=== PATIENT | male | born 1945 | race American Indian/Alaskan Native ===

== ENCOUNTER 2020-05-16 06:12 | Day surgery (SDC) | payer MEDICARE ==
[~2020-05-16 06:12] MED LIST: GLYCOPYRROLATE 0.4 MG/2 ML INJ ONE; ONDANSETRON 4 MG/2 ML INJ ONE; ePHEDrine SULFATE 50 MG/1 ML INJ ONE
[2020-05-16] MEDS ORDERED: SODIUM CHLORIDE 0.9% 1000 ML 1,000 ML IV SCH (06:45)
[2020-05-16] MEDS ORDERED: DEXMEDETOMIDINE 200 MCG/2 ML VIAL IV ONE ×2 (07:24→09:00)
[2020-05-16 07:39] LABS: BUN/Creatinine Ratio 16; Blood Urea Nitrogen 13 mg/dL (9-20); Calcium 9.1 mg/dL (8.4-10.2); Hemolysis Index 8
[2020-05-16 07:46] LABS: INR 1.18 (0.87-1.13); Partial Thromboplastin Time 25.7 Sec. (24.2-36.6)
[2020-05-16 07:47] LABS: Hemoglobin 12.9 gm/dl (11.8-15.2); Mean Corpuscular HGB Conc 34 % (32-34); Mean Corpuscular Volume 94 fl (84-94); Platelet Count 176 K/mm3 (140-440); Red Blood Count 4.05 M/mm3 (3.65-5.03); Red Cell Distribution Width 13.5 % (13.2-15.2)
[2020-05-16] MEDS ORDERED: HEPARIN/NS 5000 UNIT/500ML 1,000 ML IR ONE (07:49)
[2020-05-16] MEDS ORDERED: LIDOCAINE 1%/EPINEPHRINE 1:100,000 VIAL (20 ML) INFILTRATI ONE (07:51)
[2020-05-16] MEDS ORDERED: HEPARIN/NS 5000 UNIT/500ML 500 ML IR ONE (07:51)
[2020-05-16] MEDS ORDERED: ceFAZolin/Water 2 GM/20 ML 0 GM/0 ML SYRINGE IV ONE (07:52)
[2020-05-16] MEDS ORDERED: MIDAZOLAM 2 MG/2 ML INJ ONE (07:54)
[2020-05-16] MEDS ORDERED: fentaNYL 100 MCG/2 ML INJ ONE (07:55)
--- NOTE | 2020-05-16 08:17 | Anesthesia Day of Surgery ---
Anesthesia Day of Surgery - Day of Surgery Patient Examined: Yes Patient H&P Reviewed: Yes Patient is NPO: Yes Beta Blockers: Yes (atenolol today AM)
--- NOTE | 2020-05-16 08:17 | Anesthesia Consultation ---
Anesthesia Consult and Med Hx Date of service: 05/16/20 - Airway Anesthetic Teeth Evaluation: Poor, Partials (upper and lower) ROM Head & Neck: Adequate Mental/Hyoid Distance: Adequate Mallampati Class: Class II Intubation Access Assessment: Probably Good - Pulmonary Exam CTA: Yes - Cardiac Exam Cardiac Exam: RRR (bradycardic) - Pre-Operative Health Status ASA Pre-Surgery Classification: ASA3 Proposed Anesthetic Plan: MAC - Pulmonary Hx Smoking: Yes (former smoker quit 30 yrs) Hx Respiratory Symptoms: No - Cardiovascular System Hx Hypertension: Yes (took losartan, HCTZ, and atenolol this morning) Hx Heart Attack/AMI: No Hx Percutaneous Transluminal Coronary Angioplasty (PTCA): No Hx Cardia Arrhythmia: No Hx Peripheral Vascular Disease: Yes (w/ claudication and rest pain) - Central Nervous System CVA: No Hx Back Pain: Yes - Gastrointestinal Hx Gastroesophageal Reflux Disease: No - Endocrine Hx Renal Disease: No Hx Liver Disease: No Hx Insulin Dependent Diabetes: Yes (took usual dose lantus last night) Hx Thyroid Disease: No - Hematic Hx Anemia: No - Other Systems Hx Cancer: Yes (hx multiple myeloma) Hx Obesity: No - Additional Comments Anesthesia Medical History Comments: No prior anesthetics.
--- NOTE | 2020-05-16 08:17 | History and Physical Report ---
History of Present Illness Date of examination: 05/16/20 History of present illness: HPI: 74yo male with known left leg rest pain presents for attempted endovascular intervention. Patient denies any changes from last seen in clinic. Patient states rest pain to the left leg remains present and unchanged. No other com plaints ROS: as per HPI, otherwise negative PE: NAD, A&Ox3 RRR non-labored respirations palpable femoral pulses bilat unable to palpate pedal pulses Plan: Left lower extremity endovascular intervention consent obtained risks/benefits explained, patient expresses understanding and wishes to proceed Medications and Allergies Allergies Allergy/AdvReac Type Severity Reaction Status Date / Time No Known Allergies Allergy Unverified 01/07/15 06:36 Home Medications Medication Instructions Recorded Confirmed Last Taken Type Aspirin [Aspirin BABY CHEW TAB] 81 mg PO QDAY 01/07/15 05/16/20 05/16/20 05:00 History Losartan [Cozaar] 100 mg PO QDAY 01/07/15 05/16/20 05/16/20 05:00 History atenoloL [Tenormin] 25 mg PO DAILY 01/07/15 05/16/20 05/15/20 History hydroCHLOROthiazide [HCTZ] 25 mg PO QDAY 01/07/15 05/16/20 05/16/20 05:00 History Lenalidomide [Revlimid] 15 mg PO QDAY 05/16/20 05/16/20 05/15/20 History Active Meds: Active Medications Sodium Chloride (Nacl 0.9% 1000 Ml) 1,000 mls @ 42 mls/hr IV DIRECT JACE Last Admin: 05/16/20 07:06 Dose: 42 mls/hr Documented by: Exam - Constitutional Vitals: Temp Pulse Resp BP Pulse Ox 99.4 F 55 L 20 145/95 98 05/16/20 06:40 05/16/20 06:40 05/16/20 06:40 05/16/20 06:40 05/16/20 06:40 Results - Labs CBC & Chem 7: 05/16/20 07:06 05/16/20 07:06 Labs: Abnormal lab results 05/16/20 05/16/20 05/16/20 Range/Units 07:06 07:06 07:06 WBC 4.0 L (4.5-11.0) K/mm3 PT 15.2 H (12.2-14.9) Sec. INR 1.18 H (0.87-1.13) Potassium 3.4 L (3.6-5.0) mmol/L Carbon Dioxide 31 H (22-30) mmol/L Glucose 134 H (75-100) mg/dL
[2020-05-16] MEDS: LIDOCAINE (2%) 20 MG/1 ML VIAL 20 ML MDV INFILTRATI ONE ×3 (08:19→09:00)
[2020-05-16] MEDS: HEPARIN 10,000 UNITS/10 ML VIAL ONE ×2 (08:36→09:27)
[2020-05-16] MEDS ORDERED: GLYCOPYRROLATE 0.4 MG/2 ML INJ ONE (09:00)
[2020-05-16] MEDS ORDERED: ePHEDrine SULFATE 50 MG/1 ML INJ ONE (09:00)
[2020-05-16] MEDS ORDERED: ONDANSETRON 4 MG/2 ML INJ ONE (09:00)
[2020-05-16] MEDS ORDERED: HEPARIN 10,000 UNITS/10 ML VIAL ONE (09:10)
[2020-05-16] MEDS ORDERED: VERAPAMIL 5 MG/2 ML INJ ONE (09:10)
[2020-05-16] MEDS ORDERED: NITROGLYCERIN SYRINGE 3 ML ONE (09:11)
[2020-05-16] MEDS ORDERED: PROTAMINE SULFATE 50 MG/5 ML INJ ONE (10:26)
--- NOTE | 2020-05-16 11:06 | Post Operative Note ---
Date of procedure: 05/16/20 Pre-op diagnosis: Left Lower Extremity Critical Limb Ischemia Post-op diagnosis: same Findings: Aorto-iliac system patent bilaterally, patent left common femoral and profunda femoral artery, 80% stenosis of the origin and proximal SFA with complete total occlusion of the mid SFA with reconstitution of the TP trunk, 50% stenosis of the distal TP trunk extending into the proximal PT with 1 vessel runoff via the PT to the foot. Procedure: 1. Right Femoral Artery Access under Ultrasound guidance 2. Diagnostic Aortogram with Supervision and Interpretation 3. Left Lower Extremity Angiogram with 3rd Order Catheter Placement 4. Left Posterior Tibial Artery Access under Ultrasound guidance Anesthesia: MAC, local Surgeon: NISHANT LAUGHLIN Estimated blood loss: minimal Pathology: none Condition: stable Disposition: observation
--- NOTE | 2020-05-16 11:13 | Short Stay Summary ---
Short Stay Documentation Date of service: 05/16/20 - History H&P: dictated - Allergies and Medications Current Medications: Allergies No Known Allergies Allergy (Unverified 01/07/15 06:36) Home Medications Medication Instructions Recorded Confirmed Last Taken Type Aspirin [Aspirin BABY CHEW TAB] 81 mg PO QDAY 01/07/15 05/16/20 05/16/20 05:00 History Losartan [Cozaar] 100 mg PO QDAY 01/07/15 05/16/20 05/16/20 05:00 History atenoloL [Tenormin] 25 mg PO DAILY 01/07/15 05/16/20 05/16/20 05:00 History hydroCHLOROthiazide [HCTZ] 25 mg PO QDAY 01/07/15 05/16/20 05/16/20 05:00 History Acetaminophen with Codeine 1 tab PO Q6HR 05/16/20 05/16/20 05/15/20 History [Acetaminophen-Codeine #4 TAB] Amlodipine Besylate [Norvasc] 2.5 mg PO DAILY 05/16/20 05/16/20 05/16/20 05:00 History Apixaban [Eliquis] 5 mg PO BID 05/16/20 05/16/20 05/15/20 History Insulin Glargine [Lantus VIAL] 30 units SUB-Q QHS 05/16/20 05/16/20 05/15/20 History Latanoprost 0.005% [Xalatan 0.005%] 1 drop OP QPM 05/16/20 05/16/20 05/15/20 History Lenalidomide [Revlimid] 15 mg PO QDAY 05/16/20 05/16/20 05/15/20 History Potassium Chloride [K-Dur] 20 meq PO QDAY 05/16/20 05/16/20 05/16/20 05:00 History Active Medications Sodium Chloride (Nacl 0.9% 1000 Ml) 1,000 mls @ 42 mls/hr IV DIRECT JACE Last Admin: 05/16/20 07:06 Dose: 42 mls/hr Documented by: - Physical exam General appearance: no acute distress HEENT: Atraumatic Lungs: Normal air movement Heart: Regular rate Extremities: no ischemia - Hospital course Hospital course: the patient was taken to the laborer yard and had a left lower extremity angiogram performed. please refer to the operative note concerning details of the procedure. the patient tolerated the procedure well and was discharged home in stable condition. - Disposition Condition at discharge: Stable Disposition: DC-01 TO HOME OR SELFCARE Short Stay Discharge Plan Follow up with: BLAS MARTÍNEZ JR, MD [Primary Care Provider] - 7 Days
--- NOTE | 2020-05-16 11:51 | Operative Report ---
STAFF SURGEON: Dr. Marin Masters. PREOPERATIVE DIAGNOSIS: Left lower extremity critical limb ischemia. POSTOPERATIVE DIAGNOSIS: Left lower extremity critical limb ischemia. PROCEDURE PERFORMED: 1. Right femoral artery access under ultrasound guidance. 2. Left posterior tibial artery access under ultrasound guidance. 3. Diagnostic aortogram with supervision and interpretation. 4. Left lower extremity angiogram with third order catheter placement. 5. Closure of right femoral artery access using a Mynx closure device. COMPLICATIONS: None. ESTIMATED BLOOD LOSS: Less than 10 mL. ANESTHESIA: Deep sedation. ANGIOGRAPHIC FINDINGS: The aortoiliac system was patent bilaterally. The left common femoral and profunda femoral arteries were patent. There was an 80% stenosis at the origin and proximal superficial femoral artery on the left with a complete total occlusion of the mid superficial femoral artery with reconstitution of the tibioperoneal trunk. There is a 50% stenosis of the distal tibioperoneal trunk extending into the proximal posterior tibial artery with a 1-vessel runoff via the posterior tibial artery to the foot. INDICATIONS FOR PROCEDURE: This is a 74-year-old gentleman with known significant peripheral vascular disease, who recently developed significant rest pain in the left lower extremity. The patient had diagnostic imaging, which demonstrated extensive infrainguinal disease; therefore, the patient is to be brought to the cardiac catheterization technician in attempt for intervention for revascularization. The patient was explained the risks, benefits and alternatives of procedure, expressed understanding and wished to proceed. DESCRIPTION OF PROCEDURE: After appropriate consent was obtained, the patient was brought back to the cardiac catheterization technician, placed on the table in supine position. Both groins were prepped and the left foot were prepped and draped in the usual sterile fashion with ChloraPrep. Appropriate time-out was performed indicating correct patient, procedure, and site of the procedure. I then began the intervention by obtaining percutaneous access of the right common femoral artery in a retrograde fashion using a micropuncture technique under ultrasound guidance. Once we obtained access, needle was exchanged for a micropuncture sheath using Seldinger technique. I then proceeded to place a 5-[place]izen [place] sheath over a stiff J-wire and then this was upsized to a 7-[place]izen [place] sheath. The patient was given unfractionated heparin intravenously and ACTs were obtained throughout the remainder of the case for adequate anticoagulation. We then placed a Glidewire and Omniflush catheter into the infrarenal aorta. A diagnostic aortogram was performed, which demonstrated the findings noted above. We then proceeded to cannulate the left iliac system with a combination of the Omniflush catheter and Glidewire. The Omniflush catheter was then advanced over the bifurcation into the distal external iliac artery. Then, a series of diagnostic imaging of the left lower extremity was performed, which demonstrated the findings noted above. With this, we then proceeded to place a stiff Glidewire into the SFA, and then the short 7-[place]izen [place] sheath was exchanged for a 7-[place] x 45 cm sheath. We then proceeded to obtain pedal access using a micropuncture technique under ultrasound guidance of the posterior tibial artery in a retrograde fashion. Once we obtained access, needle was exchanged for a micropuncture sheath using Seldinger technique and diagnostic imaging revealed that we were within the true lumen of the posterior tibial artery. This was then upsized to a 4/5 slender sheath. Appropriate cocktail was placed within the artery and then multiple attempts were performed to cross the lesion from both in an antegrade and retrograde fashion using multiple wires and catheters, which were ultimately unsuccessful due to the extensive nature of the lesion. After multiple attempts, it was felt this was futile and unable to cross the extensive lesion, so the wires and catheters were removed. The stiff Glidewire was replaced back into the SFA and the long 7-[place]izen [place] sheath was then exchanged for a short 7-[place] sheath. We then proceeded to remove the wire and then deployed a Mynx closure device in the right groin, which deployed adequately, and then further hemostasis was obtained with digital compression. The slender sheath was removed from below and digital compression was held at the access site at the ankle for hemostasis and then both groins and left foot had appropriate dressings placed. The patient tolerated the procedure well, he emerged from the deep sedation and was sent to recovery in stable condition. JOB# [id number] N/OSWALDO
[2020-05-16 13:27] VITALS: BP 113/60
--- NOTE | 2020-05-16 14:41 | Post Anesthesia Evaluation ---
- Post Anesthesia Evaluation Patient Participated: Yes Airway Patent: Yes Stable Respiratory Function: Yes Nausea/Vomiting: No Temp > 96.8F: Yes Pain Manageable: Yes Adequeate Hydration: Yes Anesthesia Complications: No
== END 2020-05-16 14:50 | disposition home or self-care (01) ==
LOC: CATHLABREC 06:12 → CATH 06:12 → CATHLABREC 14:50
PROVIDERS: ATTEND Surgery Vascular Surgery
DX: I70.222 Atherosclerosis of native arteries of extremities with rest pain, left leg (principal); E11.51 Type 2 diabetes mellitus with diabetic peripheral angiopathy without gangrene; I10 Essential (primary) hypertension; Z79.899 Other long term (current) drug therapy; Z79.82 Long term (current) use of aspirin; Z79.4 Long term (current) use of insulin; Z87.891 Personal history of nicotine dependence; Z80.8 Family history of malignant neoplasm of other organs or systems; Z98.890 Other specified postprocedural states
CPT/HCPCS: 36140; 36247; 36415; 75625; 75710; 76937; 80048; 85027; 85610; 85730; C1725; C1760; C1769; C1887; C1894; J1644; J2250; J2405; J2704; J2720; J3010; J3490; J7030; J0690; Q9967